=== PATIENT | male | born 1985 ===

== ENCOUNTER 2024-11-05 07:40 | Day surgery (SDC) | payer OTHER ==
[2024-11-05] MEDS ORDERED: NALOXONE HCL 0.4 MG/ML AMPUL IV STA (13:10)
[2024-11-05] MEDS ORDERED: FLUMAZENIL 0.5 MG/5 ML ML IV STA (13:10)
[2024-11-05] MEDS ORDERED: fentaNYL CITRATE 50 MCG/ML AMPUL IV PUSH ONE (13:15)
[2024-11-05] MEDS ORDERED: DIPHENHYDRAMINE HCL 50 MG/ML VIAL 1ML IV ONE (13:15)
[2024-11-05] MEDS ORDERED: ONDANSETRON HCL 2 MG/ML VIAL IV ONE (13:15)
[2024-11-05] MEDS ORDERED: MIDAZOLAM HCL 2 MG/2 ML VIAL IV ONE (13:15)
== END 2024-11-05 14:55 | disposition home or self-care (01) ==
LOC: AMB-ENDOS 07:40
PROVIDERS: ATTEND Colon & Rectal Surgery
DX: D12.4 Benign neoplasm of descending colon (principal); K63.5 Polyp of colon; K57.30 Diverticulosis of large intestine without perforation or abscess without bleeding; Z88.0 Allergy status to penicillin; Z12.11 Encounter for screening for malignant neoplasm of colon